=== PATIENT | female | born 1995 | race Caucasian/White ===

== ENCOUNTER 2024-05-01 04:34 | Emergency (ER) | payer MEDICAID ==
[~2024-05-01] VITALS: Ht 152.4 cm; Wt 71.5 kg
[2024-05-01 04:58] VITALS: BP 131/98; PULSE 78; RESP 16; TEMP 98.1; O2SAT 98
[2024-05-01] MEDS: KETOROLAC TROMETH 60MG/2ML VIAL IM ONE (07:00)
[2024-05-01] MEDS ORDERED: METH-1182 PO (07:02)
[2024-05-01] MEDS ORDERED: IBUP-1456 PO (07:02)
== END 2024-05-01 07:11 | disposition home or self-care (01) ==
LOC: ER 04:34
DX: M43.6 Torticollis (principal); Z79.1 Long term (current) use of non-steroidal anti-inflammatories (NSAID)
CPT/HCPCS: 72040; 96372; 99283; J1885